=== PATIENT | female | born 1995 | race Caucasian/White ===

== ENCOUNTER 2017-02-11 10:38 | Emergency (ER) | payer MEDICARE, MEDICAID ==
[2017-02-11 10:56] VITALS: BP 128/78
--- NOTE | 2017-02-11 11:06 | EDM.PDOC ---
ED HPI GENERAL MEDICAL PROBLEM - General Chief Complaint: Abdominal Pain Stated Complaint: STOMACH PAIN Time Seen by Provider: 02/11/17 10:45 Source of Information: Reports: Patient History Limitations: Reports: No Limitations - History of Present Illness INITIAL COMMENTS - FREE TEXT/NARRATIVE: c/o epigastric pain at [employer] 9 PM, sharp epigastric pain [place] when [place] went to [place], awoke 2 AM with inc'd epigastric pain, took Tums x 2, bent over in pain, pain went away in 1h, feels fine how has 6m old infant at home who was sleeping and she could not come to ED in middle of night her mother drove down from [place] and is her now no dx GERD in past no actual CP, no f/c/d, no n/v, no sob - Related Data Allergies Allergy/AdvReac Type Severity Reaction Status Date / Time Penicillins Allergy Hives Verified 02/11/17 10:47 Sulfa (Sulfonamide Allergy Difficulty Verified 02/11/17 10:47 Antibiotics) Breathing tramadol Allergy Itching Verified 02/11/17 10:47 triamcinolone Allergy Swelling Verified 02/11/17 10:47 venom-honey bee Allergy Difficulty Verified 02/11/17 10:47 [bee venom (honey bee)] Breathing Home Meds: Home Meds Omeprazole 20 mg PO DAILY #14 cap.cr 02/11/17 [Rx] Vits #93/Iron Fum/FA [ Formula Tablet] 1 each PO DAILY [History] Sertraline [Zoloft] 50 mg PO DAILY 02/11/17 [History] Past Medical History - Past Health History Medical/Surgical History: Denies Medical/Surgical History 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 - Past Surgical History HEENT Surgical History: Reports: Other (See Below) Other HEENT Surgeries/Procedures: ADNOIDS Social & Family History - Family History Family Medical History: Noncontributory - Tobacco Use Smoking Status *Q: Former Smoker Years of Tobacco use: 9 Packs/Tins Daily: 0.2 Used Tobacco, but Quit: Yes Month Tobacco Last Used: quit 6 month ago Second Hand Smoke Exposure: No - Caffeine Use Caffeine Use: Reports: Coffee - Recreational Drug Use Recreational Drug Use: No - Living Situation & Occupation Living situation: Reports: Single ED ROS GENERAL - Review of Systems Review Of Systems: See Below Constitutional: Reports: No Symptoms HEENT: Reports: No Symptoms Respiratory: Reports: No Symptoms Cardiovascular: Reports: No Symptoms Endocrine: Reports: No Symptoms GI/Abdominal: Reports: Abdominal Pain : Reports: No Symptoms Musculoskeletal: Reports: No Symptoms Skin: Reports: No Symptoms Neurological: Reports: No Symptoms Psychiatric: Reports: No Symptoms Hematologic/Lymphatic: Reports: No Symptoms Immunologic: Reports: No Symptoms ED EXAM, GI/ABD - Physical Exam Exam: See Below Exam Limited By: No Limitations General Appearance: Alert, WD/WN, No Apparent Distress Ears: Normal External Exam Nose: Normal Inspection, Normal Mucosa, No Blood Throat/Mouth: Normal Inspection, Normal Lips, Normal Teeth, Normal Gums, Normal Oropharynx, Normal Voice, No Airway Compromise Head: Atraumatic, Normocephalic Neck: Normal Inspection, Supple, Non-Tender, Full Range of Motion Respiratory/Chest: No Respiratory Distress, Lungs Clear, Normal Breath Sounds, No Accessory Muscle Use, Chest Non-Tender Cardiovascular: Regular Rate, Rhythm, No Edema, No Gallop, No JVD, No Murmur, No Rub GI/Abdominal Exam: Normal Bowel Sounds, Soft, Non-Tender, No Organomegaly, No Distention, No Mass, Other (NT now, pt indicates prior pain as epigastrium only) Back Exam: Normal Inspection, Full Range of Motion, NT Extremities: Normal Inspection, Normal Range of Motion, Non-Tender, No Pedal Edema Neurological: Alert, Oriented, CN II-XII Intact, No Motor/Sensory Deficits Psychiatric: Normal Affect, Normal Mood Skin Exam: Warm, Dry, Intact, Normal Color, No Rash Course - Vital Signs Last Recorded V/S: Last Vital Signs Temp 36.5 C 02/11/17 10:53 Pulse 86 02/11/17 10:53 Resp 16 02/11/17 10:53 BP 128/78 02/11/17 10:53 Pulse Ox 99 02/11/17 10:53 Departure - Departure Time of Disposition: 11:04 Disposition: Home, Self-Care 01 Condition: Good Clinical Impression: GERD (gastroesophageal reflux disease) - Discharge Information Prescriptions: Omeprazole 20 mg PO DAILY #14 cap.cr Instructions: Gastroesophageal Reflux Disease, Adult Referrals: PCP,None [Primary Care Provider] - Additional Instructions: To decrease acid production and promote healing, take omeprazole 20 mg 1 capsule daily for 14 days. To neutralize acid, take liquid antacid 15 cc 2 hours after meals and bedtime for 2 days, then every 4 hours as needed. See your physician if you have additional symptoms. Call your Physician or Return to Emergency Department if: * Your condition worsens in any way. * You develop fever greater than 100.4. * You have vomitting that does not stop with medications. * You have pain that is not controlled with medications.
== END 2017-02-11 11:30 | disposition home or self-care (01) ==
LOC: FB.ED 10:38
DX: K21.9 Gastro-esophageal reflux disease without esophagitis (principal); F32.9 Major depressive disorder, single episode, unspecified; Z87.891 Personal history of nicotine dependence; Z79.899 Other long term (current) drug therapy; Z88.0 Allergy status to penicillin; Z88.2 Allergy status to sulfonamides; Z88.5 Allergy status to narcotic agent; Z88.8 Allergy status to other drugs, medicaments and biological substances; Z91.030 Bee allergy status
CPT/HCPCS: 99283; 99284

== ENCOUNTER 2021-12-31 05:30 | Emergency (ER) | payer MEDICARE, MEDICAID | END 2021-12-31 07:10 | disposition home or self-care (01) | LOC: FB.ED 05:30 | DX: S61.210A Laceration without foreign body of right index finger without damage to nail, initial encounter (principal); W26.8XXA Contact with other sharp object(s), not elsewhere classified, initial encounter | CPT/HCPCS: 12002; 99282 ==

== ENCOUNTER 2022-04-27 20:50 | Emergency (ER) | payer MEDICARE, MEDICAID ==
[2022-04-27] MEDS ORDERED: Ondansetron 4 MG Tab.DIS PO ONE ×2 (21:04→21:11)
[2022-04-27 21:23] LABS: ESTIMATED GFR 121 mL/min (>60)
[2022-04-28 05:59] VITALS: BP 134/67; PULSE 107
== END 2022-04-27 21:50 | disposition home or self-care (01) ==
LOC: FB.ED 20:50
DX: K52.9 Noninfective gastroenteritis and colitis, unspecified (principal); Z88.0 Allergy status to penicillin; Z88.2 Allergy status to sulfonamides; Z91.030 Bee allergy status; Z79.899 Other long term (current) drug therapy
CPT/HCPCS: 36415; 80048; 85025; 99282; 99284; Q0162

== ENCOUNTER 2022-08-23 07:50 | Emergency (ER) | payer MEDICARE, MEDICAID ==
[2022-08-23 08:01] VITALS: PULSE 89
[2022-08-23] MEDS ORDERED: Sodium Chloride 0.9% 10 ML Syringe FLUSH PRN (08:11)
[2022-08-23] MEDS ORDERED: Pantoprazole 40 MG Vial IVPUSH ONE (08:11)
[2022-08-23] MEDS ORDERED: Ketorolac 30 MG/ML SDV IVPUSH ONE (08:11)
[2022-08-23] MEDS ORDERED: Ondansetron 4 MG/2 ML SDV IVPUSH ONE (08:12)
[2022-08-23] MEDS ORDERED: Sodium Chloride 0.9% 1,000 ML IV SCH (08:15)
[2022-08-23 08:40] LABS: HEMATOCRIT 35.7 % (34.2-48.2); HEMOGLOBIN 11.8 g/dL (11.4-15.5); MEAN CORPUSCULAR HEMOGLOBIN 26.1 pg (23.9-33.9); MEAN CORPUSCULAR VOLUME 79.2 fL (76.7-100.5); RED BLOOD CELL COUNT 4.51 x10(6)uL (3.60-5.20); RED CELL DISTRIBUTION WIDTH 15.6 % (12.3-16.5); WHITE BLOOD CELL COUNT,WBC 6.3 x10-3/uL (3.0-10.3)
[2022-08-23 08:42] LABS: BLOOD UREA NITROGEN,BUN 10 mg/dL (7-18); BUN/CREATININE RATIO 12.5 (9-20); CARBON DIOXIDE,CO2 26 mmol/L (21-32); CHLORIDE,CL 105 mmol/L (100-110); CREATININE 0.8 mg/dL (0.55-1.02); ESTIMATED GFR 102 mL/min (>60); GLUCOSE RANDOM 101 mg/dL (80-116); LIPASE 19 U/L (16-77); POTASSIUM,K 3.3 mmol/L (3.5-5.3); SODIUM,NA 141 mmol/L (135-145)
[2022-08-23 08:48] LABS: A/G RATIO 1.2; ALANINE AMINOTRANSFERASE,ALT 18 U/L (12-36); ALBUMIN 3.8 g/dL (3.5-5.2); ALKALINE PHOSPHATASE 61 IU/L (56-112); ASPARTATE AMNIOTRANSFERASE,AST 18 IU/L (5-25); BILIRUBIN TOTAL 0.6 mg/dL (0.1-1.3); C-REACTIVE PROTEIN < 0.2 mg/dL (0.5-0.9)
[2022-08-23] MEDS ORDERED: Potassium Chloride 20 MEQ in Premix Bag 1 BAG IV ONE (09:10)
[2022-08-23 13:33] VITALS: BP 115/51
== END 2022-08-23 11:45 | disposition home or self-care (01) ==
LOC: FB.ED 07:50
DX: K29.00 Acute gastritis without bleeding (principal); Z88.0 Allergy status to penicillin; Z88.2 Allergy status to sulfonamides; Z91.030 Bee allergy status; Z88.8 Allergy status to other drugs, medicaments and biological substances
CPT/HCPCS: 36415; 80053; 83690; 85027; 86140; 96361; 96365; 96366; 96375; 99284; C9113; J1885; J2405; J3480; J7030

== ENCOUNTER 2023-12-26 08:24 | Emergency (ER) | payer MEDICARE, MEDICAID ==
[2023-12-26] MEDS: Lidocaine 2% Viscous Solution 15 ML UD PO ONE (09:17)
[2023-12-26 09:33] VITALS: BP 131/70; PULSE 80
== END 2023-12-26 09:22 | disposition home or self-care (01) ==
LOC: FB.ED 08:24
DX: K04.7 Periapical abscess without sinus (principal); J45.909 Unspecified asthma, uncomplicated; Z79.899 Other long term (current) drug therapy; Z88.0 Allergy status to penicillin; Z88.2 Allergy status to sulfonamides; Z88.8 Allergy status to other drugs, medicaments and biological substances; Z91.030 Bee allergy status
CPT/HCPCS: 99282; A9270

== ENCOUNTER 2025-01-30 14:40 | Emergency (ER) | payer MEDICARE, MEDICAID ==
[2025-01-30 14:55] VITALS: BP 137/84; PULSE 88
[2025-01-30] MEDS: Ketorolac 30 MG/ML SDV IM ONE (15:14)
== END 2025-01-30 15:25 | disposition home or self-care (01) ==
LOC: FB.ED 14:40
DX: M25.561 Pain in right knee (principal); Z88.0 Allergy status to penicillin; Z88.2 Allergy status to sulfonamides; Z79.899 Other long term (current) drug therapy; Z88.8 Allergy status to other drugs, medicaments and biological substances; Z91.030 Bee allergy status; Z87.891 Personal history of nicotine dependence
CPT/HCPCS: 96372; 99283; J1885

== ENCOUNTER 2025-02-02 15:58 | Emergency (ER) | payer MEDICARE, MEDICAID ==
[2025-02-02] MEDS: Ketorolac 30 MG/ML SDV IM ONE (16:33)
[2025-02-02 16:45] VITALS: BP 125/81; PULSE 91
== END 2025-02-02 16:43 | disposition home or self-care (01) ==
LOC: FB.ED 15:58
DX: M25.561 Pain in right knee (principal); G89.29 Other chronic pain; J45.909 Unspecified asthma, uncomplicated; Z88.0 Allergy status to penicillin; Z88.2 Allergy status to sulfonamides; Z91.030 Bee allergy status; Z88.8 Allergy status to other drugs, medicaments and biological substances; Z79.899 Other long term (current) drug therapy
CPT/HCPCS: 96372; 99283; J1885